=== PATIENT | male | born 1945 | race Caucasian/White ===

== ENCOUNTER 2023-05-01 21:18 | Emergency (ER) | payer OTHER ==
[~2023-05-01] VITALS: Ht 175.3 cm; Wt 87.1 kg
[2023-05-01] MEDS ORDERED: FENOFIBRATE50 MG (21:36)
[2023-05-01] MEDS ORDERED: ACID REDUCER20 M1 (21:37)
[2023-05-01] MEDS ORDERED: BIDIL TABLET1 EACH (21:37)
[2023-05-01] MEDS ORDERED: KETOROLAC TROMET5 M1 (21:37)
[2023-05-01] MEDS ORDERED: TAMS0.4C PO (21:37)
[2023-05-01] MEDS ORDERED: EZALLOR SPRINKLE5 MG PO (21:37)
[2023-05-01] MEDS ORDERED: COZAAR25 MG PO (21:37)
[2023-05-01] MEDS ORDERED: ATENOLOL25 MG PO (21:38)
[2023-05-01] MEDS ORDERED: PARACETAMOL (21:38)
[2023-05-01] MEDS ORDERED: PLAVIX75 MG (21:38)
[2023-05-01 23:35] LABS: HEMATOCRIT 42.1 % (39.0-48.0); HEMOGLOBIN 14.2 g/dL (13-16.00); MEAN CELL VOLUME 89.2 fL (80.0-100.00); MEAN CORPUSCULAR HEMOGLOBIN 30.1 pg (27.00-32.0); MEAN CORPUSCULAR HGB CONC 33.7 g/dl (32.0-36.0); PLATELET COUNT 258 K/uL (150-450); RED BLOOD COUNT 4.72 M/uL (4.00-6.00); RED CELL DISTRIBUTION WIDTH 13.2 % (11.5-14.5)
[2023-05-01 23:36] LABS: PH,URINE 5.5 (5.0-8.0); URINE APPEARANCE Clear; URINE BILIRRUBIN Negative (NEGATIVE); URINE BLOOD Moderate; URINE COLOR Yellow; URINE GLUCOSE Negative (NEGATIVE); URINE LEUKOCYTE Negative; URINE NITRATE Negative; URINE PROTEIN Negative (NEGATIVE); URINE UROBILINOGEN 0.2 E.U./dl
[2023-05-01 23:40] LABS: URINE RBC 268.8 uL (0.0-20.8)
[2023-05-01 23:45] LABS: URINE BACTERIA 3.7 uL (0.0-1933); URINE EPITHELIAL CELLS 1.2 uL (0.0-38.8)
== END 2023-05-02 00:07 | disposition home or self-care (01) ==
LOC: ER 21:18
PROVIDERS: Emergency Medicine
DX: N23 Unspecified renal colic (principal); I10 Essential (primary) hypertension; Z88.8 Allergy status to other drugs, medicaments and biological substances; N13.2 Hydronephrosis with renal and ureteral calculous obstruction; K76.0 Fatty (change of) liver, not elsewhere classified; K57.30 Diverticulosis of large intestine without perforation or abscess without bleeding